=== PATIENT | male | born 1975 ===

== ENCOUNTER 2017-02-26 20:39 | Emergency (ER) | payer BC ==
[2017-02-26 20:47] VITALS: BMI 25.1
[2017-02-26 20:50] VITALS: TEMP 97.9
[2017-02-26] MEDS ORDERED: Oxycodone/Acetaminophen 5/325 mg Tab PO STA (21:07)
--- NOTE | 2017-02-26 22:31 | ED PDOC ---
Arrival/HPI - General Chief Complaint: Lower Extremity Problem/Injury Time Seen by Provider: 02/26/17 20:50 Historian: Patient - History of Present Illness Narrative History of Present Illness (Text): 02/26/17 22:27 41yr old male presents today with 2 day history of right knee pain. pt denies trauma or injury. pt with hx of swelling of the knee in the past. denies fever/ chills. c/o pain with full extension of the knee. took aleve for pain earlier today without relief. Denies numbness weakness or tingling in the extremity. no other complaints. Past Medical History - Provider Review Nursing Documentation Reviewed: Yes - Travel History Have you recently traveled outside [place] w/in the past 3 mons?: No - Infectious Disease Hx of Infectious Diseases: None - Endocrine/Metabolic Hx Diabetes Mellitus Type 2: Yes - Psychiatric Hx Substance Use: No - Anesthesia Hx Anesthesia: No Family/Social History - Physician Review Nursing Documentation Reviewed: Yes Family/Social History: Unknown Family HX Smoking Status: Never Smoked Hx Alcohol Use: No Hx Substance Use: No Allergies/Home Meds Allergies/Adverse Reactions: Allergies No Known Allergies Allergy (Verified 02/26/17 20:47) Review of Systems - Review of Systems Respiratory: absent: SOB, Cough Cardiovascular: absent: Chest Pain Gastrointestinal: absent: Abdominal Pain Genitourinary Male: absent: Dysuria Musculoskeletal: Arthralgias. absent: Back Pain, Neck Pain Skin: absent: Rash, Pruritis Neurological: absent: Headache, Dizziness Physical Exam Vital Signs Reviewed: Yes Vital Signs Temp Pulse Resp BP Pulse Ox 02/26/17 22:54 90 16 145/81 98 02/26/17 20:49 97.9 F 103 H 18 158/99 H 96 Temperature: Afebrile Blood Pressure: Hypertensive Pulse: Tachycardic Respiratory Rate: Normal Appearance: Positive for: Well-Appearing, Non-Toxic, Comfortable Pain Distress: Mild Mental Status: Positive for: Alert and Oriented X 3 - Systems Exam Head: Present: Atraumatic Respiratory/Chest: Present: Clear to Auscultation Cardiovascular: Present: Regular Rate and Rhythm Upper Extremity: Present: Normal Inspection Lower Extremity: Present: NORMAL PULSES, Tenderness (Right knee: There is tenderness and swelling noted over the anterior aspect of the knee. There is pain with full flexion of the knee and full extension. No erythema. Positive edema. No calf tenderness. Sensation and distal pulses intact.), Swelling, Neurovascularly Intact, Capillary Refill < 2 s. No: CALF TENDERNESS, Normal ROM , Erythema, Deformity Neurological: Present: GCS=15 Skin: Present: Warm, Dry, Normal Color. No: Rashes Psychiatric: Present: Alert, Oriented x 3 Medical Decision Making ED Course and Treatment: 02/26/17 22:30 Patient nontoxic well-appearing in no distress with stable vital signs X-rays of the knee: no fracture toradol percocet pt feeling better after medications. Patient placed in knee immobilizer. pt has crutches in the car. i advised the patient that although the xrays show no fracture; there is still a possibility for ligamentous or tendon injury the patient must see the orthopedist for further evaluation. I discussed all results with patient advised to followup with the orthopedist for the next 2 days. Return if symptoms worsen persist or new symptoms develop. pt was advised to return immediately if signs of infection develop; if patient develops increasing swelling/redness, fevers, or inability to flex/extend the knee. Patient verbalizes understanding of discharge instructions and need for immediate followup. all aspects of this case were discussed the attending of record. Impression: knee pain Motrin every 6 hours as needed for pain Percocet 1 tablet every 6 hours needed for moderate to severe pain: May cause drowsiness Rest, ice, compression, elevation Use crutches for ambulation Followup with the orthopedist within the next 2 days Followup with primary care physician within the next 2 days Return if symptoms worsen persist or if new symptoms develop - RAD Interpretation Radiology Orders: 02/26/17 21:08 KNEE W PATELLA RIGHT 3 VIEW [RAD] Stat - Medication Orders Current Medication Orders: Discontinued Medications Ketorolac Tromethamine (Toradol) 60 mg IM STAT STA Stop: 02/26/17 21:08 Last Admin: 02/26/17 21:36 Dose: 60 MG IM Administration Charges Document 02/26/17 21:36 EKEOO (Rec: 02/26/17 21:36 EKEOO [id number]) Charges for Administration # of IM Administrations 1 Oxycodone/Acetaminophen (Percocet 5/325 Mg Tab) 1 tab PO STAT STA Stop: 02/26/17 21:08 Last Admin: 02/26/17 21:35 Dose: 1 TAB Disposition/Present on Arrival - Present on Arrival Any Indicators Present on Arrival: No History of DVT/PE: No History of Uncontrolled Diabetes: No Urinary Catheter: No History of Decub. Ulcer: No History Surgical Site Infection Following: None - Disposition Have Diagnosis and Disposition been Completed?: Yes Diagnosis: Knee effusion Disposition: HOME/ ROUTINE Disposition Time: 22:15 Patient Plan: Discharge Condition: GOOD Discharge Instructions (ExitCare): Knee Pain (ED), Swollen Knee Joint (ED) Additional Instructions: Motrin every 6 hours as needed for pain Percocet 1 tablet every 6 hours needed for moderate to severe pain: May cause drowsiness Rest, ice, compression, elevation Use crutches for ambulation Followup with the orthopedist within the next 2 days Followup with primary care physician within the next 2 days Return if symptoms worsen persist or if new symptoms develop Prescriptions: Ibuprofen [Motrin] 600 mg PO Q6H PRN #20 tab PRN Reason: pain/fever reduction oxyCODONE/Acetaminophen [Percocet 5/325 mg Tab] 1 tab PO Q6H PRN #10 tab PRN Reason: moderate to severe pain Referrals: Byron Guillaume MD [Primary Care Provider] - Follow up with primary Gregory Guzman III, MD [Medical Doctor] - Follow up with primary Forms: WORK NOTE
[2017-02-26 22:55] VITALS: BP 145/81; PULSE 90; RESP 16; O2SAT 98
--- NOTE | 2017-02-27 08:58 | RAD ---
PROCEDURE: Right Knee Radiographs. HISTORY: knee pain COMPARISON: None. FINDINGS: BONES: Normal. No fracture. JOINTS: Normal. No osteoarthritis. JOINT EFFUSION: None. OTHER FINDINGS: None. IMPRESSION: Normal radiographs of the right knee.
== END 2017-02-26 22:56 | disposition home or self-care (01) ==
LOC: ED 20:39
DX: M25.461 Effusion, right knee (principal)
CPT/HCPCS: 73562; 96372; 99284; J1885

== ENCOUNTER 2017-02-28 15:20 | Inpatient (IN) | payer BC ==
[2017-02-28 15:40] VITALS: BMI 27.6
--- NOTE | 2017-02-28 15:52 | ED PDOC ---
Arrival/HPI <Frank Cifuentes - Last Filed: 02/28/17 20:02> - General Historian: Patient <Alok Davis - Last Filed: 03/01/17 10:30> - General Chief Complaint: Lower Extremity Problem/Injury Time Seen by Provider: 02/28/17 15:46 - History of Present Illness Narrative History of Present Illness (Text): 02/28/17 15:54 41 y/o male, pmh including gout/htn/dm, nkda, c/o rt. anterior knee pain and swelling x 4 days with no fall or trauma. Pt. stated that he was seen here about 2 days ago, normal xray and discharge home but still having pain with limited relief, been on the crutches and knee immobilizer, stated that he has swelling to the rt. knee with fluid filling sensation. Pt. stated that he had the same problem before and they perform arthrocentesis for him with relief. Pt. has no numbness or tingling, no dizziness, no fever or chills, no painful skin. (Alok Davis) Past Medical History - Provider Review Nursing Documentation Reviewed: Yes - Infectious Disease Hx of Infectious Diseases: None - Endocrine/Metabolic Hx Diabetes Mellitus Type 2: Yes - Psychiatric Hx Substance Use: No - Anesthesia Hx Anesthesia: No <Alok Davis - Last Filed: 03/01/17 10:30> Family/Social History - Physician Review Nursing Documentation Reviewed: Yes Family/Social History: Unknown Family HX Smoking Status: Never Smoked Hx Alcohol Use: No Hx Substance Use: No <Alok Davis - Last Filed: 03/01/17 10:30> Allergies/Home Meds <Frank Cifuentes - Last Filed: 02/28/17 20:02> <Alok Davis - Last Filed: 03/01/17 10:30> Allergies/Adverse Reactions: Allergies No Known Allergies Allergy (Verified 02/28/17 15:40) Home Medications: Home Meds Medication Instructions Recorded Confirmed Glipizide/Metformin HCl 1 tab PO DAILY 02/28/17 02/28/17 [Glipizide-Metformin 5-500 mg] Ramipril [Altace] 2.5 mg PO DAILY 02/28/17 02/28/17 Review of Systems - Review of Systems Constitutional: absent: Fatigue, Fevers Eyes: absent: Vision Changes ENT: absent: Hearing Changes Respiratory: absent: Cough Cardiovascular: absent: Chest Pain Gastrointestinal: absent: Abdominal Pain, Nausea, Vomiting Musculoskeletal: Arthralgias, Joint Swelling. absent: Back Pain, Neck Pain, Myalgias Neurological: absent: Headache, Dizziness, Focal Weakness, Gait Changes, Speech Changes, Facial Droop, Disequilibrium, Seizure <Alok Davis - Last Filed: 03/01/17 10:30> Physical Exam Vital Signs Reviewed: Yes Temperature: Afebrile Blood Pressure: Hypertensive Pulse: Regular Respiratory Rate: Normal Appearance: Positive for: Well-Appearing, Non-Toxic, Comfortable Pain Distress: Severe Mental Status: Positive for: Alert and Oriented X 3 - Systems Exam Head: Present: Atraumatic, Normocephalic Pupils: Present: PERRL Extroacular Muscles: Present: EOMI Conjunctiva: Present: Normal Mouth: Present: Moist Mucous Membranes Neck: Present: Normal Range of Motion Respiratory/Chest: Present: Clear to Auscultation, Good Air Exchange. No: Respiratory Distress, Accessory Muscle Use Cardiovascular: Present: Regular Rate and Rhythm, Normal S1, S2. No: Murmurs Abdomen: Present: Normal Bowel Sounds. No: Tenderness, Distention, Peritoneal Signs Back: Present: Normal Inspection Upper Extremity: Present: Normal Inspection. No: Cyanosis, Edema Lower Extremity: Present: Normal Inspection, Other (RLE: +swelling and tenderness with generalized swelling anteriorly with redness on the mid anterior and medial region of rt. knee and knee joint, no cellulitis or streaking, no ulcers, skin intact, negative robert and chapo sign, FROM with limitation as he is unable to fully flex or extend, sensation intact,motor 5/5. ). No: Edema Neurological: Present: GCS=15, Speech Normal Skin: Present: Warm, Dry, Normal Color. No: Rashes Psychiatric: Present: Alert, Oriented x 3, Normal Insight, Normal Concentration <Alok Davis - Last Filed: 03/01/17 10:30> Vital Signs Temp Pulse Resp BP Pulse Ox 02/28/17 20:40 86 16 141/93 H 99 02/28/17 19:20 80 16 155/95 H 99 02/28/17 15:37 98.5 F 87 18 147/93 H 98 Medical Decision Making <Frank Cifuentes - Last Filed: 02/28/17 20:02> - Lab Interpretations I have reviewed the lab results: Yes Interpretation: No clinic. lab abnormalty - RAD Interpretation Truck Mechanic: Radiologist - EKG Interpretation Interpreted by ED Physician: Yes Type: 12 lead EKG Comparison: No previous EKG avail. <Alok Davis - Last Filed: 03/01/17 10:30> ED Course and Treatment: 02/28/17 15:49 -Rt. knee xray -RLE venuous doppler -cbc/cmp/Uric Acid -Toradol IM/colchicine 1.2mg po -Ice pack and observe and reassess. 02/28/17 17:30 -RLE Venuous Doppler: as per preliminary report, there is no acute DVT -Rt. knee xray show no fracture or dislocation. -Labs are non-significant -Uric acid within normal limit. 02/28/17 18:30 -Pt. still has pain with the toradol and colchicine, there is still swelling and pain with no obvious cellulitis but there is redness. Pt. request the rt. knee tap with the risk of infection and benefits understood as he frequently gets the rt. knee tap. Rt. knee arthrocentesis: -rt. knee flexed at 20 degrees, clean with betadine, clean with alcohol and chloraprep, sterile procedure, 3cc of lidocaine injected locally to obtained anesthetic effect with 25 gauze needle with 10cc syringe on the rt. lateral patellar region with normal skin color and no erythematous on that side, #18 gauge needle inserted on the rt. lateral patellar side as well with 60cc syringe and obtained about 50cc of synovial fluid as yellow cloudy noted with no gross bright red blood, #18gauze needle removed with no active bleeding noted on the site, clean with betadine and coated with bacitracin ointment plus gauze dressing, mike wrap applied. Pt. tolerated the procedure well with no complication. -Synovial fluid ordered with the crystal as paper order due to it is unavailable in the computer. -I discussed with Dr. Cobb about the case and he added additional labs including gc/chlamydia. -IV Ancef ordered for prophylatic coverage. -Pending fluid cell count. 02/28/17 19:28 -Synovial fluid wbc [id number] which is very concerning for septic joint, blood culture and IV vancomycin added. I will admit this patient for IV antibiotic and orthopedic consult as I can not rule out infection at this time as the synovial fluid remaining results are pending. I discussed with DR. Cobb and he agreed this is concerning for septic joint. -Ekg/chest xray/urine culture and IVF maintain at 100cc/hr. -Pt. has no pmd in this hospital, paging Dr. Larkin (medical service recreation aide), pending for call back. 02/28/17 19:53 -Dr. Larkin called back, discussed about the labs/radiology studies and she agreed to admit the patient but request Dr. Gracia and Dr. Romero on routine consult. -I will put in the bridge orders and physician consults. -I will discussed the case with incoming physician Dr. Cifuentes to put in the admission order. 02/28/17 20:04 -NSR @ 77 BPM, no ST elevation or depression, no T wave inversion, no previous ekg available for comparison -Chest x-ray show no active disease. (Alok Davis) - Lab Interpretations Microbiology Results: Microbiology Results 02/28/17 18:30 Synovial Fluid Gram Stain - Final Lab Results: 02/28/17 16:30 02/28/17 16:30 Lab Results 02/28/17 18:30: Fluid Type Synovial fluid, Synovial WBC 10643.0 H, Synovial RBC 9000.0 H, Synovial Neutrophils 86.4 H, Synovial Lymphocytes 13.6 H, Synov Monos/ Macrophage 0, Synovial Fluid Comment TEST NOT PERFORMED 02/28/17 16:30: WBC 6.8, RBC 5.08, Hgb 15.3, Hct 43.0, MCV 84.6, MCH 30.1, MCHC 35.6, RDW 12.1, Plt Count 242, MPV 10.6, Gran % 60.3, Lymph % (Auto) 31.9, Trimble % (Auto) 6.7 H, Eos % (Auto) 1.0 L, Baso % (Auto) 0.1, Gran # 4.07, Lymph # 2.2 , Trimble # 0.5, Eos # 0.1, Baso # 0.01, Sodium 134, Potassium 4.1, Chloride 95 L, Carbon Dioxide 30, Anion Gap 13, BUN 16, Creatinine 0.8, Est GFR ( Amer) > 60, Est GFR (Non-Af Amer) > 60, Random Glucose 267 H, Uric Acid 7.5, Calcium 9.3, Total Bilirubin 0.7, AST 64 H, ALT 93 H, Alkaline Phosphatase 100, Total Protein 8.5 H, Albumin 4.5, Globulin 4.0, Albumin/Globulin Ratio 1.1 - RAD Interpretation Radiology Orders: 02/28/17 15:47 KNEE W PATELLA RIGHT 3 VIEW [RAD] Stat DUPLEX LOWER EXTRM VEIN RIGHT [US] Stat 02/28/17 19:40 CHEST PORTABLE [RAD] Stat RLE Venuous Doppler: as per preliminary report, there is no acute DVT Rt. knee xray: moderate joint effusion, otherwise normal radiograph of the rt. knee Chest xray: no active pulmonary disease (Alok Davis) - EKG Interpretation EKG Interpretation (Text): 02/28/17 20:04 NSR @ 77 BPM, no ST elevation or depression, no T wave inversion, no previous ekg available for comparison (Alok Davis) - Medication Orders Current Medication Orders: Colchicine (Colocrys) 0.6 mg PO DAILY [facility] Last Admin: 03/01/17 09:32 Dose: 0.6 MG Doxycycline Hyclate (Doryx) 100 mg PO Q12 EMERY PRN Reason: Protocol Last Admin: 03/01/17 09:32 Dose: 100 MG Glipizide (Glucotrol) 5 mg PO 0730,1630 EMERY Last Admin: 03/01/17 07:59 Dose: 5 MG Sodium Chloride (Sodium Chloride 0.9%) 1,000 mls @ 100 mls/hr IV .Q10H EMERY Last Admin: 03/01/17 06:03 Dose: 100 MLS/HR eMAR Start Stop Document 03/01/17 06:03 IMT (Rec: 03/01/17 06:03 IMT [id number]) Intravenous Solution Start Date 03/01/17 Start Time 06:03 Ceftriaxone Sodium (Rocephin 1 Gram Ivpb) 100 mls @ 100 mls/hr IVPB DAILY EMERY PRN Reason: Protocol Last Admin: 03/01/17 09:33 Dose: 100 MLS/HR eMAR Start Stop Document 03/01/17 09:33 SD (Rec: 03/01/17 09:33 [place] [facility] [id number] Intravenous Solution Start Date 03/01/17 Start Time 09:33 End Date 03/01/17 End time 10:33 Total Infusion Time 60 Vancomycin HCl (Vancomycin 1gm) 250 mls @ 167 mls/hr IVPB Q12H EMERY PRN Reason: Protocol Stop: 03/13/17 06:01 Last Admin: 03/01/17 06:03 Dose: 167 MLS/HR eMAR Start Stop Document 03/01/17 06:03 IMT (Rec: 03/01/17 06:03 [facility] [id number]) Intravenous Solution Start Date 03/01/17 Start Time 06:03 End Date 03/01/17 End time 07:33 Total Infusion Time 90 Insulin Human Lispro (Humalog Med) 0 units SC ACHS EMERY PRN Reason: Protocol Last Admin: 03/01/17 08:05 Dose: Not Given Non-Admin Reason: Patient Refused Metformin HCl (Glucophage) 500 mg PO BID [facility] Last Admin: 03/01/17 09:32 Dose: 500 MG Naproxen (Anaprox Ds) 550 mg PO BID [facility] Last Admin: 03/01/17 09:32 Dose: 550 MG Oxycodone/Acetaminophen (Percocet 5/325 Mg Tab) 1 tab PO Q4H PRN PRN Reason: Pain, moderate (4-7) Stop: 03/03/17 22:00 Ramipril (Altace) 2.5 mg PO DAILY [facility] Last Admin: 03/01/17 09:30 Dose: 2.5 MG MAR Blood Pressure Document 03/01/17 09:30 SD (Rec: 03/01/17 09:35 [place] [facility] [id number] Blood Pressure Blood Pressure (100/60-150/90) 156/92 Discontinued Medications Bupivacaine HCl (Marcaine 0.5%) 5 ml IJ ONCE ONE Stop: 03/01/17 07:57 Colchicine (Colocrys) 1.2 mg PO STAT STA Stop: 02/28/17 15:52 Last Admin: 02/28/17 17:09 Dose: 1.2 MG Cefazolin Sodium (Ancef 1gm In Ns) 100 mls @ 100 mls/hr IVPB STAT STA Stop: 02/28/17 19:22 Last Admin: 02/28/17 18:40 Dose: 100 MLS/HR eMAR Start Stop Document 02/28/17 18:40 YP (Rec: 02/28/17 18:41 YP [id number]) Intravenous Solution Start Date 02/28/17 Start Time 18:40 End Date 02/28/17 End time 19:40 Total Infusion Time 60 Vancomycin HCl (Vancomycin 1gm) 250 mls @ 167 mls/hr IVPB STAT STA PRN Reason: Protocol Stop: 02/28/17 20:35 Last Admin: 02/28/17 20:31 Dose: 167 MLS/HR eMAR Start Stop Document 02/28/17 20:31 YP (Rec: 02/28/17 20:32 YP [id number]) Intravenous Solution Start Date 02/28/17 Start Time 20:31 End Date 02/28/17 End time 22:01 Total Infusion Time 90 Ketorolac Tromethamine (Toradol) 30 mg IVP STAT STA Stop: 02/28/17 16:27 Last Admin: 02/28/17 17:09 Dose: 30 MG IVP Administration Document 02/28/17 17:09 YP (Rec: 02/28/17 17:09 YP [id number]) Charges for Administration # of IVP Administrations 1 Methylprednisolone Acetate (Depo-Medrol) 80 mg IM ONCE ONE Stop: 03/01/17 07:57 Procedures - Time-Out Type of Procedure: Rt. knee arthrocentesis to rule out septic joint Correct Patient (with visual ID + MR# on ID Band): Yes Correct Procedure: Yes Correct Site Marked: Yes X-Ray Marked: Yes Medication Reconciliation / Bloodwork / Allergies Checked: Yes Physician Name: Dr. Cobb/KASI Davis RN Name: KENYATTA Torres. PA/Tech: Procedure performed by KASI Davsi <Alok Davis - Last Filed: 03/01/17 10:30> - PA / DEAN OF GRADUATE STUDIES / Resident Statement KATHRIN has reviewed & agrees with the documentation as recorded. KATHRIN has examined the patient and agrees with the treatment plan. <Frank Cifuentes - Last Filed: 02/28/17 20:02> - PA / DEAN OF GRADUATE STUDIES / Resident Statement KATHRIN has reviewed & agrees with the documentation as recorded. <Alok Davis - Last Filed: 03/01/17 10:30> Disposition/Present on Arrival <Frank Cifuentes - Last Filed: 02/28/17 20:02> - Present on Arrival Any Indicators Present on Arrival: No History of DVT/PE: No History of Uncontrolled Diabetes: No Urinary Catheter: No History of Decub. Ulcer: No History Surgical Site Infection Following: None - Disposition Have Diagnosis and Disposition been Completed?: Yes Disposition Time: 19:31 Patient Plan: Admission <Alok Davis - Last Filed: 03/01/17 10:30> - Disposition Diagnosis: Septic joint of right knee joint, Arthritis of right knee Disposition: HOSPITALIZED Patient Problems: Current Active Problems Problem Status Diagnosed Arthritis of right knee Acute Septic joint of right knee joint Acute Condition: STABLE
[2017-02-28 16:38] LABS: ADD MANUAL DIFF? NO
[2017-02-28 16:50] LABS: BASO # 0.01 K/mm3 (0.0-2.0); BASO % 0.1 % (0.0-3.0); EOS # 0.1 (0.0-0.7); GRAN # 4.07 (1.4-6.5); GRAN % 60.3 % (50.0-68.0); LYMPH # 2.2 (1.2-3.4); LYMPH % 31.9 % (22.0-35.0); MEAN CELL VOLUME 84.6 fL (80.0-105.0); MEAN CORPUSCULAR HEMOGLOBIN 30.1 pg (25.0-35.0); MEAN CORPUSCULAR HGB CONC 35.6 g/dl (31.0-37.0); MEAN PLATELET VOLUME 10.6 fl (7.0-11.0); MONO # 0.5 (0.1-0.6); MONO % 6.7 % (1.0-6.0); PLATELET COUNT 242 10^3/uL (120.0-450.0); RED CELL DISTRIBUTION WIDTH 12.1 % (11.5-14.5); WHITE BLOOD COUNT 6.8 10^3/ul (4.5-11.0)
[2017-02-28 17:03] LABS: ALB/GLOB RATIO 1.1 (1.1-1.8); ALKALINE PHOSPHATASE 100 U/L (38-133); ALT/SGPT 93 U/L (7-56); AST/SGOT 64 U/L (15-59); BILIRUBIN,TOTAL 0.7 mg/dL (0.2-1.3); BLOOD UREA NITROGEN 16 mg/dL (7-21); CALCIUM 9.3 mg/dL (8.4-10.5); CARBON DIOXIDE 30 mmol/L (21-33); CHLORIDE 95 mmol/L (98-107); GFR AFRICAN-AMERICAN > 60; GLUCOSE,RANDOM 267 mg/dL (70-110); POTASSIUM 4.1 mmol/L (3.6-5.0); SODIUM 134 mmol/L (132-148); TOTAL PROTEIN 8.5 g/dL (5.8-8.3); URIC ACID 7.5 mg/dL (3.5-8.5)
--- NOTE | 2017-02-28 17:29 | US ---
PROCEDURE: Right lower extremity venous US HISTORY: Leg pain and swelling. Evaluate for DVT. PHYSICIAN(S): Antonio Henley M.D. TECHNIQUE: Duplex sonography and color-flow Doppler with graded compression were used to evaluate the deep venous system of the right lower extremity. FINDINGS: The visualized deep venous system of the right lower extremity is sonographically normal and compressible. Normal waveforms and augmentation are seen. There is no sonographic evidence for deep venous thrombosis in the visualized segments of the right lower extremity. IMPRESSION: 1. No sonographic evidence for deep venous thrombosis in the visualized segments of the right lower extremity.
[2017-02-28 18:42] LABS: FLUID TYPE SYNOVIAL FLUID
[2017-02-28 18:59] LABS: SYNOVIAL FLUID LYMPHOCYTE 13.6 % (0-0); SYNOVIAL FLUID NEUTROPHIL 86.4 % (0-0); SYNOVIAL FLUID TOTAL COUNT 100 (0-0)
[2017-02-28] MEDS ORDERED: Vancomycin 1gm in NS 250ml 250 ML IVPB STA (19:06)
[2017-02-28] MEDS: Sodium Chloride 0.9% 1,000 ML IV SCH (20:16)
[2017-02-28] MEDS ORDERED: Oxycodone/Acetaminophen 5/325 mg Tab PO PRN (21:59)
[2017-02-28] MEDS: Naproxen 550 mg Tab PO SCH (22:10)
--- NOTE | 2017-02-28 23:46 | HP ---
HISTORY OF PRESENT ILLNESS: The patient is a 41-year-old male patient of , who came to [facility] Room because of increasing pain and swelling of his right knee. It started 5 days ago. He was seen 2 days ago in the Emergency Room, and he had x-ray done on 02/26 and x-ray was unremarkable. H e was given Motrin to be taken every 6 hours and Percocet and he was also given crutches. The patien t was advised to see printing specialist. The patient states he took the medication, but did not f eel any significant relief, so he came to Emergency Room for further evaluation. He denies any traum a, no fall, did not have any fever or chills. No history of nausea or vomiting, no diarrhea, no hemo ptysis, no hematemesis, no urinary symptoms, no urethral discharge. PAST MEDICAL HISTORY: Significant for: 1. Hypertension. 2. Non-insulin dependent diabetes. 3. History of gout. 4. The patient states he had similar episode previously; at that point, he had arthrocentesis done w ith significant relief. ALLERGIES: Not allergic to any medications. MEDICATIONS AT HOME: He is on Percocet, ramipril 2.5 daily, ibuprofen 600 q. 6, and he is on glipizi de and metformin 5/500 twice a day. SOCIAL HISTORY: Denies smoking, drinking or alcohol abuse. REVIEW OF SYSTEMS: Significant for pain and swelling in the right knee, has been walking with crutch es. PHYSICAL EXAMINATION: GENERAL: Does not look in any distress. VITAL SIGNS: He is afebrile, pulse 87, respirations 18, blood pressure 140/93. LUNGS: Bilateral fair airflow, no rhonchi or crackle. HEART: S1, S2 audible. ABDOMEN: Soft, nontender, no rebound, no guarding. NEUROLOGIC: He is awake and alert, communicative. Right knee has slight erythema with swelling, has some decreased range of motion secondary to pain. LABORATORY DATA: WBC 6.8, hemoglobin 15, hematocrit 43, platelets 242. Chemistry: Sodium , po tassium 4.1, chloride 91, CO2 of 30, BUN 16, creatinine 0.8, blood sugar of 267, AST 64, ALT 93. He had synovial fluid tap that shows WBC of 42,000; rbc's of 9,000; neutrophils 86%; lymphocytes 13.6. X-ray of the knee was done that is unremarkable. ASSESSMENT: 1. Right knee swelling and erythema, differential is septic arthritis versus gouty arthritis with kn ee effusion. 2. Non-insulin dependent diabetes. 3. Hypertension. 4. Hyperlipidemia. PLAN: The patient is being admitted. We will give him IV antibiotic, colchicine and hold off steroi ds until we get the culture. Ortho and ID evaluation has been requested. Start him on NSAID. Monit or his blood sugar. We will resume his usual medication and reevaluate the patient in a.m. José Luis Larkin MD cc: [id number] TT: 02/28/2017 23:45:38 or
[2017-02-28 23:58] LABS: URINE BILIRUBIN NEGATIVE (NEGATIVE); URINE BLOOD NEGATIVE (NEGATIVE); URINE GLUCOSE (UA) NEGATIVE (NEGATIVE); URINE KETONE NEGATIVE (NEGATIVE); URINE LEUKOCYTE ESTERASE NEGATIVE Leu/uL (NEGATIVE); URINE PROTEIN 30 mg/dL (<30 mg/dL); URINE UROBILINOGEN 0.2 E.U./dL (<1 E.U./dL)
[2017-03-01 00:08] LABS: URINE APPEARANCE SL CLOUDY (CLEAR); URINE COLOR YELLOW (YELLOW)
[2017-03-01 00:14] LABS: URINE BACTERIA RARE (NEG); URINE EPITHELIAL CELLS 0 - 2 /hpf (0-5); URINE RBC 0 - 2 /hpf (0-2); URINE WBC 0 - 2 /hpf (0-6)
[2017-03-01] MEDS: Vancomycin 1gm in NS 250ml 250 ML IVPB SCH ×2 (06:03→17:07)
[2017-03-01] MEDS: Sodium Chloride 0.9% 1,000 ML IV SCH (06:03)
[2017-03-01] MEDS ORDERED: MethylPREDNISolone Depo 40 mg/ml Inj IM ONE (07:56)
[2017-03-01] MEDS ORDERED: Bupivacaine 0.5% Inj(30mL) IJ ONE (07:56)
[2017-03-01] MEDS: Insulin Lispro (humaLOG) MEDIUM Coverage SC SCH ×5 (07:59→21:20)
--- NOTE | 2017-03-01 08:23 | CON ---
DATE: 03/01/2017 A 41-year-old male in 578, bed 2. Complains of right knee pain. He was admitted to the Emergency Ro om twice, 5 days ago and then just yesterday with right knee swelling. Yesterday, they did aspirate some fluid from the right knee showing a white count of 42,000 and synovial neutrophils of 86 and lym phocytes of 13 and they sent for a culture. So today I saw him. There was a remnant of fluid left i n his right knee. There is no evidence of infection and all he has is localized pain with a past his tory of having this 10 years ago and he does like to eat fish. Recently, he has been doing a lot mor e than normal, especially salmon. So when I took the fluid out of the right knee after thorough prep ping and draping, we aspirated 30 more mL of turbid fluid and sent it to the lab for crystal analysis as we already got a culture pending and a white count was done. To be an infection, it would have t o be over 90,000 with a higher shift of polys, so I feel as though this is a classic case of gout, ev en though his uric acid is normal in the serum, probably hereditary. I told him not to eat the shell fish and fish and liver and wine makes this worse and to drink a lot of water if he does have to eat those agents that cause gout. So, I injected the right knee with Depo-Medrol and Marcaine. It shoul d also help the pain and hopefully he can go home when he feels better and we will follow up on the s ynovial crystal analysis and the culture for 2 or 3 days. FINAL DIAGNOSES: Inflammatory arthritis, right knee, even though the x-ray is negative. It looks li ke a gouty arthritis and we will wait for the culture and crystal analysis to come back and he can am bulate ad-esteban. Keagan Degroot DO cc: [id number] TT: 03/01/2017 08:22:13 Confirmation # [id number] Dictation # [id number] en
--- NOTE | 2017-03-01 09:11 | RAD ---
HISTORY: medical clearance COMPARISON: No prior. FINDINGS: LUNGS: The lungs are clear. PLEURA: No significant pleural effusion identified, no pneumothorax apparent. CARDIOVASCULAR: Normal. OSSEOUS STRUCTURES: No significant abnormalities. VISUALIZED UPPER ABDOMEN: Normal. OTHER FINDINGS: None. IMPRESSION: No active pulmonary disease.
--- NOTE | 2017-03-01 09:25 | CARD ---
APPROVED REPORT EKG Measurement Heart [id number] <Conclusion> Normal sinus rhythm Nonspecific T wave abnormality
[2017-03-01] MEDS: Naproxen 550 mg Tab PO SCH ×2 (09:32→17:03)
[2017-03-01] MEDS: cefTRIAXone 1 gm 100 ML IVPB SCH (09:33)
--- NOTE | 2017-03-01 09:36 | RAD ---
PROCEDURE: Right Knee Radiographs. HISTORY: rt. anterior knee pain and swelling COMPARISON: 02/26/2017 FINDINGS: BONES: Normal. No fracture. JOINTS: Normal. No osteoarthritis. JOINT EFFUSION: Moderate joint effusion OTHER FINDINGS: None. IMPRESSION: Normal radiographs of the right knee.
[2017-03-01] MEDS ORDERED: MethylPREDNISolone 40 mg Vial IV SCH (11:30)
--- NOTE | 2017-03-01 13:42 | PN ---
DATE: 03/01/2017 SUBJECTIVE: The patient is a 41-year-old, seen and examined, sitting in chair. He states he feels m uch better. Right knee swelling has significantly improved. He is able to bend. He is able to walk . No fever, no chills, no nausea, vomiting, no diarrhea. PHYSICAL EXAMINATION: VITAL SIGNS: He is afebrile, pulse 66, respirations 18, blood pressure 156/92. LUNGS: Bilateral fair airflow, no rhonchi or crackle. HEART: S1, S2 audible. No murmur. ABDOMEN: Soft, nontender. No rebound, no guarding. NEUROLOGIC: He is awake and alert, communicative, able to ambulate. LABORATORY: Blood sugar is 216. Had arthrocentesis done. The fluid shows crystals are positive for uric acid. No growth in 24 hours noted on the culture and sensitivity of synovial fluid. ASSESSMENT: 1. Right knee effusion with gouty arthritis and difficulty walking. 2. Noninsulin dependent diabetes. 3. Hypertension. 4. Hyperlipidemia. PLAN: Currently, the patient is on Naprosyn. He has been started on colchicine. I will give him a dose of prednisone. We will continue him on doxycycline as per ID recommendation, although the patie nt has no urinary symptoms or urethral discharge. I will discontinue his IV fluids. He is eating an d tolerating well. We will reevaluate the patient in a.m. If he continues to improve, discharge silvio n for the morning. José Luis Larkin MD cc: [phone] TT: 03/01/2017 13:41:38 Confirmation # [id number] Dictation # [id number] tn
--- NOTE | 2017-03-01 14:55 | CON ---
DATE: 03/01/2017 The patient is in bed in no acute distress, was seen early this morning in room 578, bed 2. CHIEF COMPLAINT: Right knee pain x 4 days. HISTORY OF PRESENT ILLNESS: A 41-year-old male with history of gout, hypertension and diabetes emmanuelle yan who was admitted because of right knee pain. REVIEW OF SYSTEMS: Reveals the patient has had low-grade fevers, no chills, no chest pain, no abdomi nal pain, diarrhea or constipation. No bright red blood per rectum, no melena. PAST MEDICAL HISTORY: Significant for gout, hypertension, and diabetes. PAST SURGICAL HISTORY: Noncontributory. ALLERGIES: The patient has no known allergies. MEDICATIONS AT HOME: Reveal the patient to be on Percocet, Altace, Motrin, glipizide, metformin. PHYSICAL EXAMINATION: GENERAL: The patient is in bed with a temperature of 98, heart rate of 80 with a blood pressure of 1 50/90, respiratory rate of 20. HEENT: Unremarkable. NECK: Supple. LUNGS: Have decreased breath sounds. HEART: Normal S1, S2. ABDOMEN: Soft, nontender. LABORATORY EXAMINATION: Reveals a white count of 6.8, hemoglobin of 15, platelets of 242. BUN of 16 , creatinine of 0.8. AST and ALT are elevated. Urinalysis is noted. The patient's synovial fluid s hows over 42,000 WBCs, mostly neutrophils at 86%. The cultures are pending. ASSESSMENT AND PLAN: This is a 41-year-old male with gout, hypertension, diabetes who was admitted w ith right knee pain. Must rule out a right septic joint versus gout. Will treat the patient with do xycycline. The patient is on vancomycin and ceftriaxone pending blood cultures, procalcitonin, synov ial fluid cultures. Lyme serology has been ordered by Dr. Larkin. Will make further recommendation s upon the availability of the Gram stain and cultures. The case discussed with the patient and boaz ent's who is at the bedside. Javier Romero MD cc: [id number] TT: 03/01/2017 14:55:17 Confirmation # [id number] Dictation # [id number] rn
[2017-03-01 17:17] VITALS: TEMP 98.1; O2SAT 98
[2017-03-01] MEDS: MethylPREDNISolone 40 mg Vial IV SCH (21:20)
[2017-03-02 05:57] LABS: LYME DISEASE SCREEN <0.90 index (())
[2017-03-02] MEDS: Vancomycin 1gm in NS 250ml 250 ML IVPB SCH (06:08)
[2017-03-02] MEDS: Insulin Lispro (humaLOG) MEDIUM Coverage SC SCH ×2 (07:55→12:01)
[2017-03-02 09:15] VITALS: PULSE 79; RESP 20
[2017-03-02] MEDS: Naproxen 550 mg Tab PO SCH (10:08)
--- NOTE | 2017-03-02 10:11 | PN ---
DATE: 03/02/2017 The patient is in bed. Seen earlier this morning in 578, bed ____. SUBJECTIVE: The patient is feeling much better. His is at the bedside. PHYSICAL EXAMINATION: VITAL SIGNS: Temperature is 98, blood pressure is 120/70, respiratory rate of 16. HEENT: Unremarkable. NECK: Supple. LUNGS: Decreased breath sounds. HEART: Normal S1, S2. ABDOMEN: Soft, nontender. LABORATORY DATA: Reveals a white count of 6.8, hemoglobin 15, platelets of 242. Chemistries reveal the creatinine is 0.8. Microbiology reveals the patient's blood cultures are negative. Synovial cul tures are negative. Synovial fluid Gram stain is no organism is seen. ASSESSMENT AND PLAN: This is a 41-year-old male with a past medical history significant for hyperten dereck, diabetes, gout, who is admitted with right knee pain consistent with gouty arthritis. No evide nce of infection. The Lyme serology is pending. The patient's brother does have a dog and he is exp osed to the dog. He can be discharged on p.o. doxycycline 100 mg p.o. b.i.d. x 7-10 days. Javier Romero MD cc: 350 TT: 03/02/2017 10:10:22 Confirmation # [id number] Dictation # [id number] mn
[2017-03-02 10:12] VITALS: BP 115/74
[2017-03-02] MEDS: cefTRIAXone 1 gm 100 ML IVPB SCH (10:20)
[2017-03-02] MEDS: MethylPREDNISolone 40 mg Vial IV SCH (10:20)
--- NOTE | 2017-03-02 19:10 | DS ---
The patient is a 41-year-old seen and examined, who came to the Emergency Room twice. The first time he came to the ER on 02/26/2017. At that point, he was seen by Dr. Cifuentes. He had arthrocentes is done. At that point, he was given NSAID and was advised to follow up with orthopedic assistant, but the patient stated the following day, his pain got worse, so he came back to Emergency Room. He was admitted. He was seen by Dr. Degroot who drained his right knee fluid and sent for cytology that was positive for uric acid crystals, so the patient was treated with colchicine and IV steroids with significant improvement. He is able to bend his knee and also his pain has significantly impro jeremie. He was walking with crutches, but able to ambulate now, so he is being discharged today. PHYSICAL EXAMINATION: GENERAL: He is awake and alert, communicative. VITAL SIGNS: He is afebrile, pulse 79, respirations 20, blood pressure 115/74. LUNGS: Bilateral fair airflow, no rhonchi or crackle. HEART: S1, S2 audible. ABDOMEN: Soft, nontender, no rebound, no guarding. NEUROLOGIC: The patient is awake and alert, communicative. LABORATORY EXAM: There is no new lab available today; however, blood sugar is 272. His synovial flu id showed WBC 42,000 with RBCs 9,000 and neutrophil is 86%. His Lyme disease screen is negative. HI V is negative. ASSESSMENT AND PLAN: 1. Right knee effusion consistent with gouty arthritis. 2. Hypertension. 3. Non-insulin dependent diabetes. 4. History of gout. PLAN: The patient is being discharged home today. He will continue his Altace, metformin, and glipi zide. He is given prednisone 20 mg daily for 5 days, Naprosyn 550 twice a day as needed, doxycycline 100 mg twice a day for 7 days, colchicine 0.6 daily, allopurinol 300 mg daily once his gouty attack is settled, and he will follow with his PMD, Dr. Guillaume. José Luis Larkin MD cc: [id number] TT: 03/02/2017 19:09:24 mn
[2017-03-11 11:07] LABS: 18 KD (IGG) BAND See above report; 23 KD (IGG) BAND See above report; 23 KD (IGM) BAND See above report; 28 KD (IGG) BAND See above report; 30 KD (IGG) BAND See above report; 39 KD (IGG) BAND See above report; 39 KD (IGM) BAND See above report; 41 KD (IGG) BAND See above report; 41 KD (IGM) BAND See above report; 45 KD (IGG) BAND See above report; 58 KD (IGG) BAND See above report; 66 KD (IGG) BAND See above report; 93 KD (IGG) BAND See above report; LYME DISEASE INTERP (IGG) See above report
== END 2017-03-02 12:09 | disposition home or self-care (01) | DRG 554 ==
LOC: ED 15:20 → ERH 20:03 → 5RSO 22:27
PROVIDERS: ADMIT Internal Medicine; ATTEND Internal Medicine
PROC: 0S9C3ZX Drainage of Right Knee Joint, Percutaneous Approach, Diagnostic (ICD-10-PCS; principal; 2017-02-28)
DX: M10.061 Idiopathic gout, right knee (principal); M17.11 Unilateral primary osteoarthritis, right knee; I10 Essential (primary) hypertension; M25.461 Effusion, right knee; E11.9 Type 2 diabetes mellitus without complications; Z79.84 Long term (current) use of oral hypoglycemic drugs; E78.5 Hyperlipidemia, unspecified